=== PATIENT | male | born 1980 | race Caucasian/White ===

== ENCOUNTER 2017-05-18 16:44 | Observation (INO) | payer OTHER ==
[2017-05-18] MEDS ORDERED: LORazepam INJ* 2 MG/ML 1 ML VIAL IV PUSH ONE (18:10)
[2017-05-18 18:27] LABS: Hematocrit 43 % (42-52); Hemoglobin 14.8 g/dl (14.0-18.0); Mean Corpuscular HGB Conc 35 g/dl (31-36); Mean Corpuscular Hemoglobin 33 pg (27-31); Mean Corpuscular Volume 95 fL (80-94); Mean Platelet Volume 8 um3 (7.4-10.4); Red Cell Distribution Width 13 % (10.5-15); White Blood Count 6.3 10^3/ul (3.5-10.8)
[2017-05-18 18:30] LABS: Comments Flag Yes
[2017-05-18 18:31] LABS: Add Diff/Slide Review? Slide Review Added
[2017-05-18 18:52] LABS: ALT 157 U/L (7-52); AST 158 U/L (13-39); Albumin 4.1 g/dL (3.2-5.2); Alkaline Phosphatase 71 U/L (34-104); Anion Gap 12 mmol/L (2-11); BUN/Creatinine Ratio 10.9 (8-20); Blood Urea Nitrogen 7 mg/dL (6-24); CO2 Carbon Dioxide 31 mmol/L (22-32); Calcium 10.6 mg/dL (8.6-10.3); Chloride 92 mmol/L (101-111); Globulin 3.2 g/dL (2-4); Glucose 119 mg/dL (70-100); Potassium 3.2 mmol/L (3.5-5.0); Sodium 135 mmol/L (133-145); Total Protein 7.3 g/dL (6.4-8.9)
[2017-05-18 19:07] LABS: Acetaminophen < 15 mcg/mL; Alcohol < 10 mg/dL (<10); Salicylate < 2.50 mg/dL (<30)
[2017-05-18 19:16] LABS: TSH (Thyroid Stimulating Horm) 1.37 mcIU/mL (0.34-5.60)
[2017-05-18] MEDS ORDERED: Thiamine IV* 100 MG/ML 2 ML VIAL IM ONE (19:33)
[2017-05-18] MEDS ORDERED: Acetaminophen TAB* 325 MG PO PRN (19:33)
[2017-05-18] MEDS ORDERED: Thiamine IV 100 MG, Folic Acid IV* 1 MG, Multiple Vitamin IV ADULT* 10 ML in D5NS 0.9% ... IV ONE (19:40)
[2017-05-18] MEDS ORDERED: Albuterol HFA INHALER* 8 gm MDI INH PRN (19:40)
[2017-05-18] MEDS ORDERED: Niacin ER TAB* 500 MG PO ONE (19:51)
[2017-05-18] MEDS: NS 0.9% w/ 20 Meq KCL 1000 ML* 1,000 ML IV SCH (20:46)
[2017-05-18] MEDS ORDERED: LORazepam INJ* 2 MG/ML 1 ML VIAL IV PUSH SCH (21:00)
[2017-05-18 21:02] LABS: Folate > 20.00 ng/mL (>3.99)
[2017-05-18 21:03] LABS: Vitamin B12 688 pg/mL (180-914)
--- NOTE | 2017-05-18 23:19 | HP ---
CC: Yong Merino MD * HISTORY AND PHYSICAL: DATE OF ADMISSION: 05/18/17 PRIMARY CARE PROVIDER: Yong Merino MD MY ATTENDING WHILE IN THE HOSPITAL: Dr. Wyatt Glez * (DICTATED BY CITLALY HERNANDEZ) CHIEF COMPLAINT: Withdrawal from alcohol for several hours. HISTORY OF PRESENT ILLNESS: Mr. Chaparro is a 36-year-old male with past medical history significant for asthma, syphilis, gonorrhea, and chlamydia for which he was treated and alcohol abuse for the last year, who presents with symptoms consistent with alcohol withdrawal since stopping drinking yesterday at 10 a.m. The patient states that he has been having anxiety, palpitations, tremors, diarrhea, sweating, and rash on his chest and hands since he stopped drinking. The patient states that he drank the equivalent of 2 to 3 bottles of vodka or 3 or 4 bottles of wine a day for the past year due to his work in which he dealt with many clients and business meetings, which it was expected where he would drink alcohol and then he was drinking alcohol on his days off just to ivy off withdrawal symptoms. The patient states that it had been ruining his life. He had to quit his job 4 months ago due to its continued exacerbation of his alcohol addiction but he was not able to stop. The patient moved back in with his parents and has been decided it was time to quit because his 37th birthday is tomorrow. The patient states that his diet has been horrible for the past year, eating only "liquid diet" and very little solid food. The patient checked himself into [facility] in [place] yesterday and they referred him here for medical treatment of his physical withdrawal. The patient states that he has also had his body parts "lock up" on him, he has had in the past couple of days, and that he has had numbness and tingling in his hands and feet on and off for the past year. The patient denies any seizures or hallucinations. The patient states that he feels like his cognitive abilities have declined significantly in the past year. The patient was a social drinker before a year ago when he started drinking heavily. The patient denies any recent use of other illicit drugs but denies a relatively distant use of cocaine, marijuana, and other printed circuit board pcb designer drugs. The patient smoked tobacco up until yesterday as well, it is about [id number] history and is now using nicotine patches to help himself quit. PAST MEDICAL HISTORY: Alcohol abuse, Asthma, syphilis, gonorrhea, and chlamydia for which he was treated . PAST SURGICAL HISTORY: None. MEDICATIONS: 1. Flonase, unknown dose. 2. Albuterol inhaler, unknown dose. 3. Nicotine patch 21 mg daily. ALLERGIES: No known drug allergies. FAMILY HISTORY: The patient has a family history significant for a grandfather and great grandfather with alcoholism, father with myocardial infarction, grandmother with diabetes, and "all his family gets lung cancer including all his grandparents and aunts and uncle." SOCIAL HISTORY: See HPI. 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 The patient is not and having kids. REVIEW OF SYSTEMS: The patient denies fevers, cough, hemoptysis, shortness of breath, chest pain, abdominal pain, hematuria, dysuria, increase in his urine, change in vision, difficulty swallowing. PHYSICAL EXAMINATION GENERAL: The patient is a 36-year-old male who appears stated age, sitting on the ED stretcher, in moderate distress, shaking visibly. VITAL SIGNS: Blood pressure 122/75, heart rate 123, temperature was 98.1 on arrival and 100.4 at 5:59 and 99.3 at 7:49. The patient has 100% saturation on room air. HEENT: Head: Normocephalic, atraumatic. Sclerae, slight icterus noted. Pupils 6 mm, round, equal and reactive to light. Pharynx: Nonerythematous. Mucous membranes moist. NECK: Supple. No lymphadenopathy. RESPIRATORY: Clear to auscultation bilaterally. No wheezes, rales, or rhonchi. Good air exchange bilaterally. CARDIAC: Tachycardic, regular. No clicks, murmurs, gallops, or rubs. Radial pulses, dorsalis pedis, and posterior tibialis pulses all 2+ bilaterally. No edema noted. No carotid bruits auscultated. ABDOMEN: Soft, nontender, nondistended. Hyperactive bowel sounds in all 4 quadrants. No abdominal bruits auscultated. No hepatosplenomegaly. : No suprapubic tenderness. No CVA tenderness. NEUROLOGIC: Cranial nerves II through XII intact. Manufacturing Finance Manager strength intact. Alert and oriented x3, anxious. SKIN: There is a maculopapular rash on the corner of the mouth and the upper torso.. The patient has bruises and scabs consistent with fall on his knees bilaterally.Skin is otherwise warm, diaphoretic, and intact DIAGNOSTIC STUDIES/LAB DATA: White blood cell count 6.3, hemoglobin 14.8, hematocrit 43, MCV 95, MCH 33, platelet count 89. INR 0.85. Sodium 135, potassium 3.2, chloride 92, carbon dioxide 31, anion gap 12, creatinine 0.64, BUN 7, glucose 119, calcium 10.6. Total bilirubin 2.9, AST 158, ALT 157. Total protein 7.3, albumin 4.1. Serum alcohol less than 10. Tylenol less than 15. Salicylates less than 2.5. EKG shows sinus tachycardia with repolarization pattern, V2, V3, and V4, with no other significant abnormalities. IMPRESSION AND PLAN: The patient is a 36-year-old male, past medical history significant for alcohol abuse, asthma, and multiple sexually transmitted infections for which he is treated, who presents today with alcohol withdrawal, for which he will be put on WA protocol and observed after which he will go back to rehab to help maintain abstinence. 1. Alcohol withdrawal: Started on the WA protocol with Ativan based on score. The patient given banana bag as well as niacin 500 mg and thiamine 100 mg now and daily for vitamin replacement. 2. Alcoholic hepatitis: The patient will be sent to rehab to maintain abstinence. We will recheck CMP in the morning to trend LFTs. 3. Hypokalemia: The patient was started on normal saline for fluid replacement with 20 mEq of potassium per liter. We will repeat this as maintenance fluids at 175 an hour and check CMP in the morning to reassess electrolyte replacement. 4. Asthma: Albuterol inhaler ordered for shortness of breath and wheezing. While in the hospital, the patient states he had been using his inhaler twice a day while at home mainly due to sensitivity to animal dander at his mother's house. 5. FEN: Normal unrestricted diet, fluids with potassium running at 175. 6. Code status: Full code. Healthcare proxy is Yessenia Chaparro, his mother. 7. DVT prophylaxis: The patient is low risk. The patient should be ambulated as frequently as condition allows. 8. Disposition: The patient is admitted to observation for alcohol withdrawal. We will reassess as his condition progresses. TIME SPENT: Approximately 60 minutes was spent on this admission; 30 of which was spent [id number] with the patient obtaining history and physical. This case was discussed with my attending, Dr. Wyatt Glez, and he is in agreement with this plan. CITLALY HERNANDEZ [id number]/[facility] #: [id number] MARY JANE
[2017-05-19] MEDS: NS 0.9% w/ 20 Meq KCL 1000 ML* 1,000 ML IV SCH ×2 (02:47→09:28)
[2017-05-19 06:20] LABS: Hematocrit 36 % (42-52); Hemoglobin 12.5 g/dl (14.0-18.0); Mean Corpuscular HGB Conc 35 g/dl (31-36); Mean Corpuscular Hemoglobin 33 pg (27-31); Mean Corpuscular Volume 95 fL (80-94); Mean Platelet Volume 8 um3 (7.4-10.4); Red Cell Distribution Width 13 % (10.5-15); White Blood Count 4.1 10^3/ul (3.5-10.8)
[2017-05-19 06:22] LABS: Comments Flag Yes
[2017-05-19 06:32] LABS: Albumin 3.3 g/dL (3.2-5.2); BUN/Creatinine Ratio 12.9 (8-20); Calcium 8.4 mg/dL (8.6-10.3); EGFR African American 185.7 (>60); EGFR Non-African American 144.4 (>60); Globulin 2.4 g/dL (2-4); Potassium 3.5 mmol/L (3.5-5.0); Total Bilirubin 2.3 mg/dL (0.2-1.0); Total Protein 5.7 g/dL (6.4-8.9)
[2017-05-19] MEDS ORDERED: Multivitamins/Minerals TAB PO SCH (09:00)
[2017-05-19] MEDS ORDERED: Thiamine TAB* 100 MG TAB PO SCH (09:00)
[2017-05-19] MEDS ORDERED: Folic Acid TAB* 1 MG PO SCH (09:00)
[2017-05-19] MEDS ORDERED: Nicotine PATCH 21 MG/24 HR* PATCH TRANSDERM SCH (09:00)
[2017-05-19] MEDS ORDERED: chlordiazePOXIDE CAP* 25 MG PO SCH (11:00)
[2017-05-19 12:25] VITALS: BP 118/80
[2017-05-19] MEDS ORDERED: Nicotine Patch Removal NOTE PATCH OFF SCH (21:00)
--- NOTE | 2017-05-20 04:35 | DS ---
DISCHARGE SUMMARY: DATE OF ADMISSION: 05/18/17 DATE OF DISCHARGE: 05/19/17 ADMITTING PROVIDER: CITLALY Fitzpatrick PRIMARY CARE PROVIDER: Yong Merino MD CHIEF COMPLAINT: Alcohol withdrawal symptoms including agitation, diarrhea, palpitations, tremor, sweating. PRIMARY DIAGNOSIS: Alcohol withdrawal. SECONDARY DIAGNOSES: Alcohol dependence and asthma. Hx of syphillis, chlamydia HISTORY OF PRESENT ILLNESS AND HOSPITAL COURSE: Mr. Chaparro is a 37-year-old male with past medical history significant for asthma and significant alcohol abuse occurring over the last year. 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 He quit his job 4 months ago to move back to the [facility] as he recognized this lifestyle was not healthy for him; however, he has not been successful in moderating his alcohol intake at all. His last drink was on Wednesday, May 16, around 10 p.m. By the next morning, he had started having withdrawal symptoms such as palpitations , tremors, diarrhea, sweating, and anxiety and these increased throughout the day. On day of admission, he presented to the [facility] program for alcohol withdrawal residential treatment, was only there for a few hours before they recommended him transfer to a medical facility for acute treatment of alcohol withdrawal. His initial vital signs in the ED included tachycardia as high as 132 and a T-max of 100.4 degrees Fahrenheit. His symptoms were treated with Ativan p.r.n. and of note only received 2 mg total throughout the entire hospital stay, in the ED. His symptoms improved greatly after that dose and his initial laboratory evaluation included transaminitis with total bilirubin 2.9, AST 158, ALT 157, alk phos was normal at 71. All 4 of these trended down on hospital day #2. Toxicology was negative including less than 10 serum alcohol. By morning of hospital day #2, the patient was feeling significantly better, though did seem somewhat apprehensive on exam. He demonstrated no tremors. His nausea had resolved, he had slight diaphoresis on occasion. The patient denied any visual or auditory hallucinations including even tactile hallucinations. His heart rate had decreased to 88 beats per minute. The patient was still eager to pursue alcohol detoxification therapy in the residential facility. He was discharged with Librium 25 mg twice a day for 2 days followed by Librium 25 mg daily for the next 2 days with 2 additional tablets provided for breakthrough symptoms of withdrawal. He was continued on a nicotine patch for his smoking dependence. DISPOSITION: [facility] alcohol detoxification facility in [place], [place]. DIET: Regular and unchanged. FOLLOWUP: He should follow up with Dr. Merino after discharge from [facility]. [id number]/[facility] #: [id number] MARY JANE
--- NOTE | 2017-05-23 12:02 | ED ---
Brad Davis Alfonso, scribed for Kahlil Romero MD on 05/18/17 at 1815 . Complex/Multi-Sys Presentation - HPI Summary HPI Summary: This patient is a 36 year old M presenting from [facility] to [facility] with a chief complaint of anxiousness since earlier today. He stopped consuming ETOH 20 hours ago. Symptoms alleviated by nothing. Patient reports vomiting. Patient denies seizures. SHx of vodka (2-3 bottles a day). Tobacco abuse disorder. PMHx includes asthma. - History Of Current Complaint Chief Complaint: EDGeneral Time Seen by Provider: 05/18/17 18:09 Hx Obtained From: Patient Onset/Duration: Sudden Onset, Lasting Hours, Still Present Timing: Constant Severity Currently: Moderate Severity Initially: Moderate Alleviating Factor(s): Nothing Associated Signs And Symptoms: Positive: Vomiting - Allergies/Home Medications Allergies/Adverse Reactions: Allergies Allergy/AdvReac Type Severity Reaction Status Date / Time No Known Allergies Allergy Verified 05/18/17 17:59 Home Medications: Home Medications Multiple Vitamin [Daily Multiple Vitamin] 1 tab PO DAILY 05/18/17 [History Confirmed 05/18/17] PMH/Surg Hx/FS Hx/Imm Hx Respiratory History: Reports: Hx Asthma Sensory History: Denies: Hx Deafness Opthamlomology History: Denies: Hx Legally Blind Infectious Disease History: No Infectious Disease History: Denies: Traveled Outside the [place] in Last 30 Days - Family History Known Family History: Positive: Cardiac Disease, Diabetes - Social History Alcohol Use: last drink 20h ago Substance Use Type: Reports: None Smoking Status (MU): Current Every Day Smoker Review of Systems Negative: Fever, Chills Negative: Erythema Negative: Sore Throat Negative: Chest Pain Negative: Shortness Of Breath, Cough Positive: Vomiting. Negative: Abdominal Pain, Nausea Negative: burning, hematuria Negative: Myalgia, Edema Negative: Rash Neurological: Other - Negative dizziness and seizure Positive: Anxious All Other Systems Reviewed And Are Negative: Yes Physical Exam Triage Information Reviewed: Yes Vital Signs On Initial Exam: Initial Vitals Temp Pulse Resp BP Pulse Ox 98.1 F 125 20 143/91 100 05/18/17 16:58 05/18/17 16:58 05/18/17 16:58 05/18/17 16:58 05/18/17 16:58 Vital Signs Reviewed: Yes Appearance: Positive: Well-Appearing, No Pain Distress Skin: Positive: Warm, Dry Head/Face: Positive: Normal Head/Face Inspection Eyes: Positive: Conjunctiva Clear ENT: Positive: Normal ENT inspection Neck: Positive: Other: - Musculoskeletal ROM normal neck. (-) JVD, (-) Stridor, (-) Tracheal deviation Lymph: (-) Cervical adenopathy Respiratory/Lung Sounds: Positive: Other - Effort normal. (-) Respiratory distress, (-) Wheezes, (-) Rales Cardiovascular: Positive: Tachycardia, Other - Heart sounds normal; Intact distal pulses; The pedal pulses are 2+ and symmetric. Radial pulses are 2+ and symmetric. (-) Murmur Abdomen Description: Positive: Other: - Soft, (-) Tenderness, (-) Distension, (- ) Guarding, (-) Rebound Musculoskeletal: Negative: Edema Left, Edema Right Neurological: Positive: Alert, Oriented to Person Place, Time Psychiatric: Positive: Affect/Mood Appropriate, Other - Tremulous - [place] Coma Scale Coma Scale Total: 15 Diagnostics - Vital Signs Vital Signs Temp Pulse Resp BP Pulse Ox 05/18/17 17:59 100.4 F 110 20 144/85 99 05/18/17 16:58 98.1 F 125 20 143/91 100 - Laboratory Lab Results: Lab Results 05/18/17 05/18/17 05/18/17 Range/Units 18:18 18:18 18:18 WBC 6.3 (3.5-10.8) 10^3/ul RBC 4.50 (4.0-5.4) 10^6/ul Hgb 14.8 (14.0-18.0) g/dl Hct 43 (42-52) % MCV 95 H (80-94) fL MCH 33 H (27-31) pg MCHC 35 (31-36) g/dl RDW 13 (10.5-15) % Plt Count 89 L (150-450) 10^3/ul MPV 8 (7.4-10.4) um3 Neut % (Auto) 74.6 (38-83) % Lymph % (Auto) 19.0 L (25-47) % [place] % (Auto) 5.6 (1-9) % Eos % (Auto) 0.2 (0-6) % Baso % (Auto) 0.6 (0-2) % Absolute Neuts (auto) 4.7 (1.5-7.7) 10^3/ul Absolute Lymphs (auto) 1.2 (1.0-4.8) 10^3/ul Absolute Monos (auto) 0.4 (0-0.8) 10^3/ul Absolute Eos (auto) 0 (0-0.6) 10^3/ul Absolute Basos (auto) 0 (0-0.2) 10^3/ul Absolute Nucleated RBC 0 10^3/ul Nucleated RBC % 0 Hem Pathologist Commnt INR (Anticoag Therapy) 0.85 L (0.89-1.11) Sodium 135 (133-145) mmol/L Potassium 3.2 L (3.5-5.0) mmol/L Chloride 92 L (101-111) mmol/L Carbon Dioxide 31 (22-32) mmol/L Anion Gap 12 H (2-11) mmol/L BUN 7 (6-24) mg/dL Creatinine 0.64 L (0.67-1.17) mg/dL Est GFR ( Amer) 180.0 (>60) Est GFR (Non-Af Amer) 140.0 (>60) BUN/Creatinine Ratio 10.9 (8-20) Glucose 119 H (70-100) mg/dL Calcium 10.6 H (8.6-10.3) mg/dL Total Bilirubin 2.90 H (0.2-1.0) mg/dL AST 158 H (13-39) U/L ALT 157 H (7-52) U/L Alkaline Phosphatase 71 (34-104) U/L Total Protein 7.3 (6.4-8.9) g/dL Albumin 4.1 (3.2-5.2) g/dL Globulin 3.2 (2-4) g/dL Albumin/Globulin Ratio 1.3 (1-3) Vitamin B12 688 (180-914) pg/mL Folate > 20.00 (>3.99) ng/mL TSH 1.37 (0.34-5.60) mcIU/mL Salicylates < 2.50 (<30) mg/dL Acetaminophen < 15 mcg/mL Serum Alcohol < 10 (<10) mg/dL Result Diagrams: 05/19/17 05:30 05/19/17 05:30 Lab Statement: Any lab studies that have been ordered have been reviewed, and results considered in the medical decision making process. - EKG 1713 Cardiac Rate: Tachycardia - BPM 101 EKG Rhythm: Sinus Tachycardia EKG Interpretation: No STEMI Complex Multi-Symp Course/Dx Assessment/Plan: This patient is a 36 year old M presenting from [facility] to [facility] with a chief complaint of anxiousness since earlier today. He stopped consuming ETOH 20 hours ago. Symptoms alleviated by nothing. Patient reports vomiting. Patient denies seizures. SHx of vodka (2-3 bottles a day). Tobacco abuse disorder. PMHx includes asthma. An EKG reveals sinus tachycardia. Consulted Dr. Glez (hospitalist) who agrees to admit. Patient will be admitted to [facility]. The patient is agreeable with this plan. 35 MINUTES OF CRITICAL CARE TIME. - Diagnoses Provider Diagnoses: Alcohol withdrawal - Physician Notifications Discussed Care Of Patient With: Wyatt Glez Time Discussed With Above Provider: 19:35 Instructed by Provider To: Other - Consulted Dr. Glez (hospitalist) who agrees to admit. - Critical Care Time Critical Care Time: 30-74 min - 35 minutes CCT. Discharge - Discharge Plan Condition: Improved Disposition: ADMITTED TO [facility] The documentation as recorded by the Brad gutierrez Alfonso accurately reflects the service I personally performed and the decisions made by , Kahlil Romero MD.
== END 2017-05-19 12:25 ==
LOC: ED 16:44 → MED 18:59
PROVIDERS: ADMIT Internal Medicine; ATTEND Internal Medicine
DX: F10.239 Alcohol dependence with withdrawal, unspecified (principal); K70.10 Alcoholic hepatitis without ascites; J45.909 Unspecified asthma, uncomplicated; R45.1 Restlessness and agitation; R19.7 Diarrhea, unspecified; R00.2 Palpitations; R25.1 Tremor, unspecified; E87.6 Hypokalemia; R61 Generalized hyperhidrosis; F17.210 Nicotine dependence, cigarettes, uncomplicated
CPT/HCPCS: 36415; 80053; 80320; 80329; 82607; 82746; 84443; 85025; 85060; 85610; 93005; 96365; 96372; 99284; A9270-GY; G0378; G0480; J2060; J3411